=== PATIENT | female | born 1995 | race American Indian/Alaskan Native ===

== ENCOUNTER 2016-10-29 22:32 | Emergency (ER) | payer SELFPAY ==
[2016-10-29 23:06] VITALS: BP 140/79
[2016-10-29 23:44] LABS: Basophils % (Auto) 0.4 % (0.0-1.8); Eosinophils % (Auto) 2.9 % (0.0-4.3); Hematocrit 39.2 % (30.3-42.9); Hemoglobin 12.7 gm/dl (10.1-14.3); Mean Corpuscular HGB Conc 32 % (30-34); Mean Corpuscular Hemoglobin 29 pg (28-32); Mean Corpuscular Volume 88 fl (79-97); Platelet Count 355 K/mm3 (140-440); Red Blood Count 4.43 M/mm3 (3.65-5.03); Red Cell Distribution Width 14.9 % (13.2-15.2); White Blood Count 9.2 K/mm3 (4.5-11.0)
[2016-10-29 23:52] LABS: Blood Urea Nitrogen 8 mg/dL (7-17); Calcium 9.4 mg/dL (8.4-10.2); Carbon Dioxide 20 mmol/L (22-30); Chloride 100.6 mmol/L (98-107); Glucose 77 mg/dL (65-100); Sodium 137 mmol/L (137-145)
[2016-10-30 00:15] LABS: Anion Gap 21 mmol/L; Potassium 4.2 mmol/L (3.6-5.0)
[2016-10-30 02:32] LABS: Urine Drugs of Abuse Note Disclamer
[2016-10-30 03:13] LABS: Bacteria,Urine 1+ /HPF (Negative); Bilirubin,Urine NEG (Negative); Blood,Urine NEG (Negative); Ketones,Urine 80 mg/dL (Negative); Leukocyte Esterase,Urine TR (Negative); Mucus,Urine 3+ /HPF; Nitrite,Urine NEG (Negative)
== END 2016-10-30 05:41 | disposition left against medical advice (07) ==
LOC: ED 22:32
DX: Z53.21 Procedure and treatment not carried out due to patient leaving prior to being seen by health care provider (principal)
CPT/HCPCS: 36415; 80048; 80307; 81001; 85025; G0480; 80320

== ENCOUNTER 2017-04-19 17:56 | Inpatient (IN) | payer MEDICAID ==
--- NOTE | 2017-04-19 18:29 | History and Physical Report ---
History of Present Illness Date of examination: 04/19/17 Date of admission: 04/19/17 17:56 Chief complaint: Breech Presentation with Oligo Late presentation to care Poor dating History of present illness: 22-year-old at unsure gestational age due to late presentation to care, patient had only 2 visits at the clinic. She gives an oral history of OLI 04/29 which would make her 38+4 wks. Spoke to office CNM, Janel Allen, patient was apparently seen by [facility] today and Dr. Dennis recommended delivery. Past History Past Medical History: no pertinent history Past Surgical History: D&C CRESTER History: chlamydia. denies: hepatitis B, hepatitis C, HIV, syphilis, trichomonas Social history: single. denies: smoking - Obstetrical History Expected Date of Delivery: 04/29/17 (per [facility] report) Actual Gestation: 38 Week(s) 4 Day(s) : 3 Para: 1 Medications and Allergies Allergies Allergy/AdvReac Type Severity Reaction Status Date / Time Z-ZEYNEP AdvReac RASH, Uncoded 06/10/14 12:09 STOMACH UPSET Home Medications Medication Instructions Recorded Confirmed Last Taken Type Methylergonovine [Methergine] 0.2 mg PO Q8HR #6 tablet 06/11/14 Unknown Rx metroNIDAZOLE [Flagyl] 500 mg PO Q12HR #14 tablet 06/11/14 Unknown Rx Cephalexin [Keflex] 500 mg PO TID #30 capsule 07/28/14 Unknown Rx Ibuprofen [Motrin 800 MG tab] 800 mg PO TID PRN #30 tablet 08/15/15 Unknown Rx Sulfamethoxazole/Trimethoprim 1 each PO BID #20 tablet 08/15/15 Unknown Rx [Bactrim DS TAB] Review of Systems Constitutional: no fever, no chills, no fatigue Cardiovascular: no chest pain, no orthopnea, no palpitations, no syncope, no lightheadedness, no shortness of breath, no dyspnea on exertion, no high blood pressure Respiratory: no cough, no cough with sputum, no shortness of breath, no dyspnea on exertion Gastrointestinal: no abdominal pain, no nausea, no vomiting Genitourinary: no vaginal bleeding, no vaginal discharge, no leakage of fluid - Physical Exam Cardiovascular: Regular rate, Normal S1, Normal S2 Lungs: Positive: Clear to auscultation, Normal air movement Abdomen: Positive: normal appearance, soft. Negative: distention, tenderness, guarding, rigidity Uterus: Positive: enlarged (Difficult to assess due to body habitus) Extremities: Positive: normal Results All other labs normal. Assessment and Plan A: 22-year-old at 38+4 with oligohydramnios and breech presentation issues -Limited/No care -Morbidly Obese -Breech presentation -Chlamydia pos (no show for Rxt) P: -Routine labs -Patient has been consented -Proceed to the OR once available - Patient Problems (1) 38 weeks gestation of Current Visit: Yes Status: Acute (2) Limited care Current Visit: Yes Status: Acute (3) with uncertain dates, antepartum Current Visit: Yes Status: Acute (4) Morbid obesity Current Visit: Yes Status: Acute (5) Oligohydramnios Current Visit: Yes Status: Acute
[2017-04-19] MEDS ORDERED: PEPCID IV ONE (18:42)
[2017-04-19] MEDS ORDERED: EMLA TP PRN (18:42)
[2017-04-19] MEDS ORDERED: BICITRA PO ONE (18:42)
[2017-04-19] MEDS ORDERED: REGLAN IV ONE (18:42)
[2017-04-19] MEDS ORDERED: LACTATED RINGERS 1,000 ML IV SCH (19:00)
[2017-04-19] MEDS ORDERED: ANCEF/STERILE WATER 2 GM/20 ML 2 GM/20 ML SYRINGE IV NR (19:00)
[2017-04-19] MEDS ORDERED: PITOCin/NS 20 UNIT/1000ML DRIP 20 UNITS/1,000 ML BAG IV SCH ×2 (19:00→22:00)
--- NOTE | 2017-04-19 19:27 | Anesthesia Consultation ---
Anesthesia Consult and Med Hx Date of service: 04/19/17 - Airway Anesthetic Teeth Evaluation: Good ROM Head & Neck: Adequate Mental/Hyoid Distance: Adequate Mallampati Class: Class II Intubation Access Assessment: Probably Good - Pulmonary Exam CTA: Yes - Cardiac Exam Cardiac Exam: RRR - Pre-Operative Health Status ASA Pre-Surgery Classification: ASA2 Proposed Anesthetic Plan: Epidural, Spinal - Pulmonary Hx Asthma: No - Cardiovascular System Hx Hypertension: No - Endocrine Hx Non-Insulin Dependent Diabetes: No - Other Systems Hx Obesity: Yes
--- NOTE | 2017-04-19 19:27 | Anesthesia Day of Surgery ---
Anesthesia Day of Surgery - Day of Surgery Patient Examined: Yes Patient H&P Reviewed: Yes Patient is NPO: Yes
[2017-04-19] MEDS ORDERED: ZOFRAN IV PRN (19:28)
[2017-04-19] MEDS ORDERED: NARCAN 0.4 MG/1 ML IV PRN ×2 (19:28→21:11)
[2017-04-19] MEDS ORDERED: MORPHINE IV PRN ×2 (19:28)
[2017-04-19] MEDS ORDERED: BENADRYL IV PRN (19:28)
[2017-04-19 19:29] LABS: Basophils % (Auto) 0.2 % (0.0-1.8); Eosinophils # (Auto) 0.3 K/mm3 (0.0-0.4); Eosinophils % (Auto) 3.1 % (0.0-4.3); Hematocrit 32.6 % (30.3-42.9); Lymphocytes # (Auto) 1.6 K/mm3 (1.2-5.4); Lymphocytes % (Auto) 18.9 % (13.4-35.0); Mean Corpuscular HGB Conc 34 % (30-34); Mean Corpuscular Hemoglobin 28 pg (28-32); Mean Corpuscular Volume 83 fl (79-97); Monocytes # (Auto) 0.7 K/mm3 (0.0-0.8); Monocytes % (Auto) 7.7 % (0.0-7.3); Platelet Count 397 K/mm3 (140-440); Red Blood Count 3.94 M/mm3 (3.65-5.03); Red Cell Distribution Width 14.3 % (13.2-15.2)
[2017-04-19] MEDS ORDERED: Fluarix Quad 2017-2018(36 MOS+ IM ONE (19:41)
[2017-04-19] MEDS ORDERED: MORPHINE ONE (19:51)
[2017-04-19] MEDS ORDERED: ANCEF/NS 1 GM/50 ML 1 GM/50 ML BAG IV NR (20:00)
[2017-04-19] MEDS ORDERED: ANCEF/STERILE WATER 2 GM/20 ML IV ONE (20:00)
[2017-04-19] MEDS ORDERED: SODIUM CHLORIDE FLUSH SYRINGE 10 ML IV NR ×2 (20:00→22:00)
[2017-04-19] MEDS ORDERED: WATER FOR IRRIG STERILE IR ONE (20:00)
[2017-04-19] MEDS ORDERED: fentaNYL-BUPIV 2 MCG/ML-0.125% 200 MCG/100 ML BAG EPIDURAL SCH (20:00)
[2017-04-19] MEDS ORDERED: NACL 0.9% IR ONE (20:00)
[2017-04-19] MEDS ORDERED: ePHEDrine SULFATE ONE (20:10)
[2017-04-19] MEDS ORDERED: NEO SYNEPHRINE/NS Syringe(OR USE) IV ONE (20:12)
[2017-04-19] MEDS ORDERED: ANCEF ONE (20:23)
[2017-04-19] MEDS ORDERED: ZOFRAN ONE (20:27)
[2017-04-19] MEDS ORDERED: BENADRYL ONE (20:43)
[2017-04-19] MEDS ORDERED: VERSED ONE (20:45)
--- NOTE | 2017-04-19 21:10 | Operative Report ---
Operative Report Operative Report: DATE: 04/19/2017 PREOPERATIVE DIAGNOSIS: 22-year-old at 38+4 weeks, morbid obesity, oligohydramnios, breech presentation, Limited to no care POSTOP DIAGNOSIS: As above NAME OF PROCEDURE: Primary low transverse section SURGEON: BÁRBARA AIKEN MD AUDIT SENIOR ASSOCIATE: [] ANESTHESIA: Combined spinal epidural EBL: 700 mL PATHOLOGY SPECIMEN: None URINE OUTPUT: 1 58 mL FINDINGS: Female infant in marcelo breech presentation, time of 20:28, Apgars 8 and 9, infant weight 6 lbs. 6 oz. or 2901 grams, normal uterus tubes and ovaries bilaterally DESCRIPTION OF PROCEDURE: After informed consent, patient was taken to the operating room where she was prepped and draped in a sterile fashion. Pfannestial incision was performed 2 cm above the pubic symphysis. This was then carried down to the underlying rectus fascia which was scored in the midline. The fascial incision was extended laterally with the use of Aguilar scissors, anterior leaf was then grasped with Kirby's elevated dissected sharply and bluntly off the underlying rectus. In a similar fashion the inferior leaf was grasped elevated dissected sharply and bluntly off the underlying rectus. The rectus was in the midline and the peritoneal cavity was entered without difficulty. After good visualization of the bladder the peritoneal layer was extended up and down; bladder blade was placed in the patient's pelvic cavity, bladder flap was created without difficulty. A hysterotomy incision was then performed with clear amniotic fluid noted. in marcelo breech presentation was delivered without difficulty in the usual manner; cord was clamped cut and infant was handed over to waiting NICU staff. The placenta was then delivered intact, the uterus was then exteriorized cleared of all clots and debris. Her hysterotomy incision was then closed in a running locked fashion with 0 Vicryl on a CTX; using the same suture were able to imbricate the initial layer. The uterus was then returned to the patient's pelvic cavity; the peritoneal edges were grasped with hemostats and Carrie's; irrigation was used to clear the gutters of all clots and debris. Tisseel hemostatic agent was applied copiously over the hysterotomy incision. The bladder flap was then closed in a running fashion with 3-0 Vicryl. The peritoneal layer was closed in a running fashion with 3-0 Vicryl; the rectus was reapproximated with a single [id number] stitch. The fascia was then closed in a running fashion with 0 Vicryl; the subcutaneous layer was reapproximated with a single [id number] stitch. The skin was then closed in a subcuticular manner with 4-0 Monocryl. She tolerated the procedure well lap and instrument counts were correct 2, she did receive 3 grams of Ancef prior to the procedure. She is transferred to PACU in stable condition.
[2017-04-19] MEDS ORDERED: LANSINOH TP PRN (21:11)
[2017-04-19] MEDS ORDERED: MOTRIN PO PRN (21:11)
[2017-04-19] MEDS ORDERED: ANUCORT-HC PR PRN (21:11)
[2017-04-19] MEDS ORDERED: PHENERGAN PR PRN (21:11)
[2017-04-19] MEDS ORDERED: MILK OF MAGNESIA PO PRN (21:11)
[2017-04-19] MEDS ORDERED: MYLICON PO PRN (21:11)
[2017-04-19] MEDS ORDERED: TUCKS PAD TP PRN (21:11)
[2017-04-19] MEDS ORDERED: SENOKOT PO PRN (21:11)
--- NOTE | 2017-04-19 21:38 | Post Anesthesia Evaluation ---
- Post Anesthesia Evaluation Patient Participated: Yes Airway Patent: Yes Stable Respiratory Function: Yes Nausea/Vomiting: No Temp > 96.8F: Yes Pain Manageable: Yes Adequeate Hydration: Yes Anesthesia Complications: No Block Receding Appropriately: Yes Patient on Ventilator: No
[2017-04-19] MEDS ORDERED: D5LR 1,000 ML IV SCH (22:00)
[2017-04-20] MEDS: TORADOL IV PRN ×2 (03:35→13:02)
[2017-04-20 09:46] LABS: Hematocrit 29.5 % (30.3-42.9); Hemoglobin 9.8 gm/dl (10.1-14.3)
[2017-04-20] MEDS: FEOSOL PO SCH (09:49)
[2017-04-20] MEDS: PRENATAL VITAMIN PO SCH (09:49)
--- NOTE | 2017-04-20 11:22 | Progress Note ---
Assessment and Plan POD# 1 s/p Primary LTCS -Doing well issues -Limited/No care -Morbidly Obese -Breech presentation -Chlamydia pos (no show for Rxt) - status post 3 g Ancef prior to surgery P: -Continue routine postop care -Anticipate discharge in 24-48 hours - Patient Problems (1) 38 weeks gestation of Current Visit: Yes Status: Acute (2) Limited care Current Visit: Yes Status: Acute (3) with uncertain dates, antepartum Current Visit: Yes Status: Acute (4) Morbid obesity Current Visit: Yes Status: Acute (5) Oligohydramnios Current Visit: Yes Status: Acute Subjective - Subjective Date of service: 04/20/17 Principal diagnosis: POD # 1 Interval history: Patient seen and examined, stable doing well. No chest pain or shortness of breath no fever or chills, adequate bowel bladder function, de jesus still in place , not yet ambulated pain well-controlled Patient reports: appetite normal, voiding normally, pain well controlled, flatus , no dizzy ambulation, no nauseated [place]: doing well Objective - Vital Signs Latest vital signs: Vital Signs Temp Pulse Resp BP BP Pulse Ox 04/20/17 09:26 98.8 F 87 20 104/46 95 04/20/17 04:30 99.3 F 80 16 98/52 04/20/17 00:40 99.1 F 74 18 100/48 98 04/19/17 22:30 66 12 110/55 93 04/19/17 22:20 97.7 F 84 11 L 97/49 99 04/19/17 22:10 77 13 100/47 97 04/19/17 22:00 65 13 105/49 99 04/19/17 21:50 72 13 106/42 99 04/19/17 21:40 77 10 L 123/69 99 04/19/17 21:32 87 15 97 04/19/17 21:30 97.6 F 04/19/17 19:01 98.9 F 89 18 134/68 98 Intake and Output 04/19/17 04/20/17 04/20/17 23:59 07:59 15:59 Intake Total 2250 Output Total 258 500 Balance 1991 - Intake: IV 2250 Output: Urine 258 500 Indwelling Catheter 500 Other: Total, Output Amount 500 Weight 146.964 kg - Exam Abdomen: Present: normal appearance, soft. Absent: distention, tenderness, guarding, rigidity Extremities: Present: normal Incision: Present: dressed - Labs Labs: Abnormal lab results 04/19/17 04/20/17 Range/Units 19:10 09:13 Hgb 9.8 L (10.1-14.3) gm/dl Hct 29.5 L (30.3-42.9) % [place] % (Auto) 7.7 H (0.0-7.3) % Seg Neutrophils % 70.1 H (40.0-70.0) %
[2017-04-20] MEDS: PERCOCET 5/325 PO PRN (21:02)
[2017-04-20] MEDS ORDERED: M-M-R II VACCINE SUB-Q ONE (21:12)
[2017-04-20] MEDS ORDERED: BOOSTRIX IM ONE (21:12)
--- NOTE | 2017-04-21 08:37 | Progress Note ---
Assessment and Plan POD# 2 s/p Primary LTCS -Doing well and desires discharge home P: -Will discharged home -Follow up in clinic in 1-2 weeks for incision check - Patient Problems (1) Status post primary low transverse section Current Visit: Yes Status: Acute (2) 38 weeks gestation of Current Visit: Yes Status: Acute (3) Limited care Current Visit: Yes Status: Acute (4) with uncertain dates, antepartum Current Visit: Yes Status: Acute (5) Morbid obesity Current Visit: Yes Status: Acute (6) Oligohydramnios Current Visit: Yes Status: Acute Subjective - Subjective Date of service: 04/21/17 Principal diagnosis: POD # 2 Interval history: Patient seen and examined, stable doing well. No chest pain or shortness of breath no fever or chills, adequate bowel bladder function, ambulating without difficulty and pain well controlled. Patient reports: appetite normal, voiding normally, pain well controlled, flatus , ambulating normally, no dizzy ambulation, no nauseated [place]: doing well (Infant scheduled for adoption) Objective - Vital Signs Latest vital signs: Vital Signs Temp Pulse Resp BP BP Pulse Ox 04/21/17 01:00 98.6 F 66 16 121/77 04/20/17 09:26 98.8 F 87 20 104/46 95 Intake and Output 04/20/17 04/21/17 04/21/17 23:59 07:59 15:59 Intake Total 300 Output Total 700 Balance -700 300 Intake: Intake, Free Water 300 Output: Urine 700 Indwelling Catheter 350 Void 350 Other: Total, Output Amount 700 # Bowel Movements 1 - Exam Abdomen: Present: normal appearance, soft, normal bowel sounds. Absent: distention, tenderness, guarding, rigidity Uterus: Present: firm, fundal height below umbilicus Extremities: Present: normal Incision: Present: dry, intact - Labs Labs: Abnormal lab results 04/20/17 Range/Units 09:13 Hgb 9.8 L (10.1-14.3) gm/dl Hct 29.5 L (30.3-42.9) %
--- NOTE | 2017-04-21 08:38 | Discharge Summary ---
Providers - Providers Date of Admission: 04/19/17 17:56 Date of discharge: 04/21/17 Attending physician: BÁRBARA AIKEN 04/20/17 14:59 Consult to Case Management [CONS] Routine Services Needed at Discharge: Document Reviewer Notified:: no Was contact made?: No Additional Physician Instructions: baby for adoption Primary care physician: BÁRBAAR AIKEN Hospitalization Reason for admission: section (Breech presentation with Oligo scheduled for primary ), IUP at term Delivery: Procedure: primary low transverse Incision: dry, intact Other procedures: none complications: none Discharge diagnosis: IUP at term delivered, other (Primary for breech presentation and oligohydramnios) [place] baby: female Hospital course: 22-year-old at unsure gestational age due to late presentation to [facility], patient had only 2 visits at the clinic. She gives an oral history of OLI 04/29/2016 which would make her 38+4 wks. Spoke to office CNM, Janel Allen, patient was apparently seen by [facility] today and Dr. Dennis recommended delivery. Status post primary for breech presentation, is to be adopted. Hospital course was unremarkable Condition at discharge: Good Disposition: DC-01 TO HOME OR SELFCARE - Discharge Diagnoses (1) Status post primary low transverse section Status: Acute (2) 38 weeks gestation of Status: Acute (3) Limited care Status: Acute (4) with uncertain dates, antepartum Status: Acute (5) Morbid obesity Status: Acute (6) Oligohydramnios Status: Acute Plan - Discharge Medications Prescriptions: Ibuprofen [Motrin 600 MG tab] 600 mg PO Q8H PRN #30 tablet PRN Reason: Pain Multivitamin with Iron [Multivitamins with Iron] 1 each PO DAILY #30 tablet oxyCODONE /ACETAMINOPHEN [Percocet 5/325] 1 tab PO Q6HR PRN #30 tablet PRN Reason: Pain - Provider Discharge Summary Activity: no sex for 6 weeks, no heavy lifting 4 weeks, no strenuous exercise Diet: routine Additional instructions: [] Smoking cessation referral if applicable(refer to patient education folder for contact #) [] Refer to [facility] Booklet Call your doctor immediately for: * Fever > 100.5 * Heavy vaginal bleeding ( >1 pad per hour) * Severe persistent headache * Shortness of breath * Reddened, hot, painful area to leg or breast * Drainage or odor from incision. * Keep incision clean and dry at all times and follow doctor's instructions regarding bathing/showering - Follow up plan Follow up: BÁRBARA AIKEN MD [Primary Care Provider] - 14 Days
[2017-04-21] MEDS: FEOSOL PO SCH (10:10)
[2017-04-21] MEDS: PERCOCET 5/325 PO PRN (10:10)
[2017-04-21] MEDS: PRENATAL VITAMIN PO SCH (10:10)
[2017-04-21 15:24] VITALS: BP 119/76
== END 2017-04-21 13:30 | disposition home or self-care (01) | DRG 765 ==
LOC: APU 17:56 → OB 23:44
PROVIDERS: ADMIT Obstetrics & Gynecology Gynecology; ATTEND Obstetrics & Gynecology Gynecology
PROC: 10D00Z1 Extraction of Products of Conception, Low, Open Approach (ICD-10-PCS; principal; 2017-04-19)
DX: O32.1XX0 Maternal care for breech presentation, not applicable or unspecified (principal); O41.03X0 Oligohydramnios, third trimester, not applicable or unspecified; Z68.43 Body mass index [BMI] 50.0-59.9, adult; O98.82 Other maternal infectious and parasitic diseases complicating childbirth; Z37.0 Single live birth; Z3A.38 38 weeks gestation of pregnancy; O99.214 Obesity complicating childbirth; E66.01 Morbid (severe) obesity due to excess calories
CPT/HCPCS: 36415; 85014; 85018; 85025; 86706; 86762; 86850; 86900; 86901; 87806; 90686; C9250; J0690; J1200; J1885; J2250; J2270; J2370; J2405; J2590; J2765; J7120; J7121

== ENCOUNTER 2018-01-18 08:51 | Emergency (ER) | payer MEDICAID ==
[2018-01-18 09:14] VITALS: BP 147/96
== END 2018-01-18 09:40 | disposition left against medical advice (07) ==
LOC: ED 08:51
DX: F41.9 Anxiety disorder, unspecified (principal); Z53.21 Procedure and treatment not carried out due to patient leaving prior to being seen by health care provider

== ENCOUNTER 2018-01-18 13:11 | Emergency (ER) | payer MEDICAID ==
--- NOTE | 2018-01-18 13:28 | Emergency Department Report ---
HPI - HPI HPI: Room 9 The patient is 22-year-old female presenting with a chief complaint of suicidal ideation. The patient states she has a history depression but has been off her antidepressants for several years. The patient states recently (will not give a time frame) she has had suicidal ideation. The patient states she is having thoughts of running into traffic. The patient came to this ED earlier this morning but eloped prior to evaluation. The patient was found standing on the wall outside of the emergency department that is adjacent to a stairway. The patient was threatening to jump off of the wall. Patient was brought into the hospital by security. The patient is tearful. Patient denies any attempts at harming herself. Location: Mental state Duration: "A while" Quality: Suicidal Severity: Severe Modifying factors: [see above] Context: [see above] Mode of transportation: [not driving] ED Past Medical Hx - Past Medical History Hx Psychiatric Treatment: Yes (depression) - Surgical History Additional Surgical History: D&C - Family History Family history: no significant - Social History Smoking Status: Current Every Day Smoker Substance Use Type: Alcohol, Cocaine, Marijuana, Other (ecstasy) - Medications Home Medications: Home Medications Medication Instructions Recorded Confirmed Last Taken Type Ibuprofen [Motrin 600 MG tab] 600 mg PO Q8H PRN #30 tablet 04/19/17 Unknown Rx Multivitamin with Iron 1 each PO DAILY #30 tablet 04/19/17 Unknown Rx [Multivitamins with Iron] oxyCODONE /ACETAMINOPHEN [Percocet 1 tab PO Q6HR PRN #30 tablet 04/19/17 Unknown Rx 5/325] ED Review of Systems ROS: Stated complaint: AMS Other details as noted in HPI Constitutional: no symptoms reported Eyes: denies: eye pain ENT: denies: throat pain Respiratory: no symptoms reported Cardiovascular: denies: chest pain Endocrine: no symptoms reported Gastrointestinal: denies: abdominal pain Genitourinary: denies: dysuria Musculoskeletal: denies: back pain Neurological: denies: headache Psychiatric: suicidal thoughts Physical Exam - Physical Exam Physical Exam: GENERAL: The patient is well-developed well-nourished female tearful sitting on stretcher. [] HEENT: Normocephalic. Atraumatic. Extraocular motions are intact. Patient has moist mucous membranes. NECK: Supple. No meningitic signs are noted. Trachea midline CHEST/LUNGS: Clear to auscultation. There is no respiratory distress noted. HEART/CARDIOVASCULAR: Regular. There is no tachycardia. There is no gallop rub or murmur. ABDOMEN: Abdomen is soft, nontender. Patient has normal bowel sounds. There is no abdominal distention. SKIN: There is no rash. There is no edema. There is no diaphoresis. NEURO: The patient is awake, alert, and oriented. The patient is cooperative. The patient has normal speech and gait. MUSCULOSKELETAL: There is no evidence of acute injury. ED Medical Decision Making - Lab Data Result diagrams: 01/18/18 14:32 01/18/18 14:32 Laboratory Tests 01/18/18 01/18/18 01/18/18 14:32 14:32 14:32 WBC 5.0 RBC 4.01 Hgb 11.4 Hct 34.2 MCV 85 MCH 28 MCHC 33 RDW 14.8 Plt Count 368 Lymph % (Auto) 33.6 [place] % (Auto) 8.8 H Eos % (Auto) 0.7 Baso % (Auto) 0.8 Lymph # 1.7 [place] # 0.4 Eos # 0.0 Baso # 0.0 Seg Neutrophils % 56.1 Seg Neutrophils # 2.8 Sodium 140 Potassium 3.2 L Chloride 102.4 Carbon Dioxide 24 Anion Gap 17 BUN 7 Creatinine 0.9 Estimated GFR > 60 BUN/Creatinine Ratio 8 Glucose 82 Calcium 9.2 HCG, Qual Salicylates < 0.3 L Acetaminophen Plasma/Serum Alcohol 01/18/18 01/18/18 01/18/18 14:32 14:32 14:32 WBC RBC Hgb Hct MCV MCH MCHC RDW Plt Count Lymph % (Auto) [place] % (Auto) Eos % (Auto) Baso % (Auto) Lymph # [place] # Eos # Baso # Seg Neutrophils % Seg Neutrophils # Sodium Potassium Chloride Carbon Dioxide Anion Gap BUN Creatinine Estimated GFR BUN/Creatinine Ratio Glucose Calcium HCG, Qual Negative Salicylates Acetaminophen < 5.0 L Plasma/Serum Alcohol < 0.01 - Differential Diagnosis suicidal ideation, depression Critical care attestation.: If time is entered above; I have spent that time in minutes in the direct care of this critically ill patient, excluding procedure time. ED Disposition Clinical Impression: Depression, Suicidal ideation Disposition: DC/TX-65 PSY HOSP/PSY UNIT Is pt being admited?: No Does the pt Need Aspirin: No Condition: Serious Time of Disposition: 16:27 (awaiting acceptance)
[2018-01-18 14:57] LABS: Basophils % (Auto) 0.8 % (0.0-1.8); Eosinophils % (Auto) 0.7 % (0.0-4.3); Hematocrit 34.2 % (30.3-42.9); Hemoglobin 11.4 gm/dl (10.1-14.3); Lymphocytes # (Auto) 1.7 K/mm3 (1.2-5.4); Lymphocytes % (Auto) 33.6 % (13.4-35.0); Mean Corpuscular HGB Conc 33 % (30-34); Mean Corpuscular Hemoglobin 28 pg (28-32); Mean Corpuscular Volume 85 fl (79-97); Monocytes # (Auto) 0.4 K/mm3 (0.0-0.8); Monocytes % (Auto) 8.8 % (0.0-7.3); Platelet Count 368 K/mm3 (140-440); Red Blood Count 4.01 M/mm3 (3.65-5.03); Red Cell Distribution Width 14.8 % (13.2-15.2)
[2018-01-18 15:17] LABS: BUN/Creatinine Ratio 8; Blood Urea Nitrogen 7 mg/dL (7-17); Calcium 9.2 mg/dL (8.4-10.2); Hemolysis Index 1
[2018-01-18 22:53] LABS: Bacteria,Urine 2+ /HPF (Negative); Bilirubin,Urine NEG (Negative); Blood,Urine NEG (Negative); Color,Urine Yellow (Yellow); Mucus,Urine FEW /HPF; Protein,Urine <15 mg/dL mg/dL (Negative)
[2018-01-18 22:59] LABS: Benzodiazepines Screen,Urine PRESUMPTIVE NEGATIVE; Methadone Screen,Urine PRESUMPTIVE NEGATIVE; Opiate Screen,Urine PRESUMPTIVE NEGATIVE
[2018-01-18 23:16] LABS: Amphetamine Screen,Urine PRESUMPTIVE POSITIVE; Cannabinoid Screen,Urine PRESUMPTIVE POSITIVE; Cocaine Screen,Urine PRESUMPTIVE POSITIVE
--- NOTE | 2018-01-19 20:11 | Consultation ---
History of Present Illness - Reason for Consult Consult date: 01/19/18 Reason for consult: Initial Psychiatric Evaluation - Chief Complaint Chief complaint: " Security stopped me from jumping off the ledge" - History of Present Psychiatric Illness Patient is 22-year-old female that presents to the emergency room with a chief complaint of suicidal ideation. Patient has a PPHx of MDD. The patient states recently (will not give a time frame) she has had suicidal ideation. The patient states she is having thoughts of running into traffic. The patient came to this ED earlier this morning but eloped prior to evaluation. The patient was found standing on the wall outside of the emergency department that is adjacent to a stairway. The patient was threatening to jump off of the wall. Patient was brought into the hospital by security. Today patient presents cooperative but anxious during the assessment. She states, " I came here yesterday because I did some drugs last night. I was feeling anxious and unsafe. I did not trust myself. I called 911." Current she endorses paranoid delusions and auditory hallucinations " the voices are me going back and forth." She denies VH's and HI's. She verbalizes that her depression worsen after her brother was killed by his approximately 2 years ago. She continues to endorse suicidal ideations with no specific plan. Current Psychiatric Medications: Patient denies. Past Psychiatric History: MDD( Age 13); 2 previous inpatient psychiatric hospitalizations ( [facility] x 2 ); No outpatient psychiatrist; Multiple suicide attempts ( overdosing, drinking chemicals, and inhaling carbon dioxide) . Last attempt a few weeks ago- refuses to give specific date. Past Psychiatric Medication Trials: Depakote- ( during childhood) History of Trauma/Abuse: Patient denies sexual, physical, and mental abuse. Drug/Alcohol Abuse History: Marijuana- amount/frequency- daily, multiple times throughout the day, method- "smoke," last use- 01/18/18, last use- age 12; Cocaine/Xanax- amount/frequency- varies, method- cocaine "snort"/ Xanax- "pills "; last use- 01/18/18, first use- age 20; UDS positive for amphetamines, marijuana, and cocaine. Social History: High School Diploma- highest level of education; 2 children- 8 months old (placed in the adoption system); good support system- " family"; Employed- [employer]; Lives with mother in [place], [place]. Family History: Cousins " alcoholics" Medications and Allergies Allergies Allergy/AdvReac Type Severity Reaction Status Date / Time Z-ZENYEP AdvReac RASH, Uncoded 06/10/14 12:09 STOMACH UPSET Home Medications Medication Instructions Recorded Confirmed Last Taken Type Ibuprofen [Motrin 600 MG tab] 600 mg PO Q8H PRN #30 tablet 04/19/17 Unknown Rx Multivitamin with Iron 1 each PO DAILY #30 tablet 04/19/17 Unknown Rx [Multivitamins with Iron] oxyCODONE /ACETAMINOPHEN [Percocet 1 tab PO Q6HR PRN #30 tablet 04/19/17 Unknown Rx 5/325] Mental Status Exam - Vital signs Last Vital Signs Temp 98.1 F 01/19/18 10:00 Pulse 53 L 01/19/18 10:00 Resp 16 01/19/18 10:00 BP 121/59 01/19/18 10:00 Pulse Ox 98 01/19/18 10:00 - Exam Narrative exam: Mental Status Exam General Appearance: Causally Dressed-hospital gown Eye Contact: Intermittent Orientation: Alert and oriented x 4 (person, place, time, and situation) Attitude/Behavior: Cooperative Sensorium: Distracted Psychomotor & Musculoskeletal Activity: Laying in bed Mood: "down"; depressed, dysphoric, and anxious Affect: Constricted Speech/Language: Slow Thought Processes: Circumstantial Thought Content: Impoverished Perception: + Auditory hallucinations " me going back and forth with myself" Concentration/Attention: Impaired Suicidal Ideations/Plan: + suicidal ideation without a specific plan Homicidal Ideations/Plan: Patient denies. Judgment: Poor Insight: Poor Results Result Diagrams: 01/18/18 14:32 01/18/18 14:32 Abnormal lab results 01/18/18 Range/Units 22:24 Urine WBC (Auto) 9.0 H (0.0-6.0) /HPF All other labs normal. Assessment and Plan Assessment and plan: Impression: PPHx MDD. Mood Disorder Unspecified. Today the patient is cooperative but anxious during the assessment. Patient endorses auditory hallucinations. paranoid delusions, and suicidal ideations without a specific plan. She denies HI's and VH's UDS positive for amphetamines, marijuana, and cocaine. DDx: r/o drug induced psychosis r/o bipolar disorder with psychotic features r/ o schizoaffective disorder Recommendations/Plan: 1. Continue 1013 with placement to inpatient psychiatric services. 2. Start Abilify 5 mg po QHS mood/psychosis. Discussed possible metabolic side effects of Abilify with the patient. 3. Will continue to monitor mood, psychosis, sleep, appetite, compliance, and side effects.
[2018-01-19] MEDS ORDERED: ATIVAN PO ONE (20:42)
[2018-01-19] MEDS ORDERED: ATIVAN ONE (20:47)
[2018-01-19 20:53] VITALS: BP 127/68
[2018-01-19] MEDS ORDERED: ABILIFY PO SCH (22:00)
[2018-01-19] MEDS ORDERED: HABITROL TD ONE (23:06)
[2018-01-20] MEDS ORDERED: HALDOL IM PRN (02:03)
[2018-01-20] MEDS ORDERED: BENADRYL IM PRN (02:03)
== END 2018-01-20 06:34 ==
LOC: ED 13:11
DX: F32.9 Major depressive disorder, single episode, unspecified (principal); F17.200 Nicotine dependence, unspecified, uncomplicated
CPT/HCPCS: 36415; 80048; 80307; 81001; 84703; 85025; 96372; 99285; G0480; J1200; J1630; 80320

== ENCOUNTER 2018-07-18 15:02 | Emergency (ER) | payer MEDICAID, OTHER ==
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
[2018-07-18 18:21] VITALS: BP 143/70
== END 2018-07-18 18:21 | disposition home or self-care (01) ==
LOC: ED 15:02
DX: S39.012A Strain of muscle, fascia and tendon of lower back, initial encounter (principal); V49.49XA Driver injured in collision with other motor vehicles in traffic accident, initial encounter; Y93.89 Activity, other specified; Y92.488 Other paved roadways as the place of occurrence of the external cause; Y99.8 Other external cause status
CPT/HCPCS: 72100

== ENCOUNTER 2021-07-18 16:08 | Emergency (ER) | payer MEDICAID, OTHER ==
[2021-07-18 18:06] VITALS: BP 144/81
[2021-07-18] MEDS ORDERED: DEXAMETHASONE 4 MG TAB PO ONE (20:10)
[2021-07-18 20:36] LABS: Bacteria,Urine 1+ /HPF (Negative); Bilirubin,Urine NEG (Negative); Blood,Urine NEG (Negative); Color,Urine Yellow (Yellow); Mucus,Urine 1+ /HPF; Protein,Urine <15 mg/dL mg/dL (Negative)
[2021-07-18 20:43] LABS: HCG Qualitative,Urine Negative (Negative)
[2021-07-18 21:03] LABS: Hematocrit 36.3 % (30.3-42.9); Hemoglobin 11.8 gm/dl (10.1-14.3); Mean Corpuscular HGB Conc 33 % (30-34); Mean Corpuscular Volume 90 fl (79-97); Platelet Count 406 K/mm3 (140-440); Red Blood Count 4.02 M/mm3 (3.65-5.03); Red Cell Distribution Width 14.5 % (13.2-15.2)
--- NOTE | 2021-07-18 21:05 | XRay Report ---
CHEST 2 VIEWS INDICATION / CLINICAL INFORMATION: chest pain. COMPARISON: None available. FINDINGS: SUPPORT DEVICES: None. HEART / MEDIASTINUM: No significant abnormality. LUNGS / PLEURA: No significant pulmonary or pleural abnormality. No pneumothorax. ADDITIONAL FINDINGS: No significant additional findings. IMPRESSION: 1. No acute findings. Signer Name: Jeffy Giraldo MD Signed: 07/18/2021 9:01 PM Workstation Name: [id number]
[2021-07-18 21:29] LABS: Alanine Aminotransferase 13 units/L (7-56); Blood Urea Nitrogen 10 mg/dL (7-17); Calcium 9.3 mg/dL (8.4-10.2); Hemolysis Index 18
[2021-07-18 21:30] LABS: BUN/Creatinine Ratio 14
--- NOTE | 2021-07-18 22:08 | Emergency Department Report ---
ED Chest Pain HPI - General Chief Complaint: Chest Pain Stated Complaint: CHEST PAIN Time Seen by Provider: 07/18/21 19:34 Source: patient Mode of arrival: Ambulatory Limitations: No Limitations - History of Present Illness Initial Comments: 26-year-old black female with no past medical history and no known family history of CAD presents to the emergency department for evaluation of left chest pain. She states that she started having left chest pain earlier this morning with shortness of breath, nausea, and dizziness. She states that pain feels li ke a deep squeeze under her left breast and radiates her left arm at times. She states the pain is significantly worse when she takes a deep breath. She denies diaphoresis, fever. She states that she just feels achy and bad all over. MD Complaint: chest pain -: Gradual, hour(s) Onset: during rest Pain Location: left chest Pain Radiation: LUE Severity: severe Quality: tightness Consistency: intermittent Worsens With: inspiration re: nausea, dyspnea. denies: vomting, diaphoresis, sense of impending doom Other Symptoms: denies: cough, fever, syncope, rash, acid taste in mouth, leg swelling, palpitations, burping Treatments Prior to Arrival: none Aspirin use within the Past 7 Days: (0) No - Related Data Previous Rx's Medication Instructions Recorded Last Taken Type Ibuprofen [Motrin 600 MG tab] 600 mg PO Q8H PRN #30 tablet 04/19/17 Unknown Rx Multivitamin with Iron 1 each PO DAILY #30 tablet 04/19/17 Unknown Rx [Multivitamins with Iron] oxyCODONE /ACETAMINOPHEN [Percocet 1 tab PO Q6HR PRN #30 tablet 04/19/17 Unknown Rx 5/325] Ibuprofen [Ibu] 800 mg PO Q8H PRN #20 tablet 07/18/18 Unknown Rx methOCARBAMOL [Robaxin TAB] 500 mg PO Q6H PRN #14 tablet 07/18/18 Unknown Rx Naproxen [Naprosyn] 500 mg PO BID #14 tab 07/18/21 Unknown Rx cephALEXin [Keflex] 500 mg PO Q12HR #14 cap 07/18/21 Unknown Rx Allergies Allergy/AdvReac Type Severity Reaction Status Date / Time azithromycin Allergy Hives Verified 07/18/18 15:04 Heart Score - HEART Score History: Moderately suspicious EKG: Normal Age: < 45 Risk factors: 1-2 risk factors Troponin: < normal limit HEART Score: 2 - EKG Read Time Time EKG Completed: 16:20 EKG Read Time: 16:25 - Critical Actions Critical Actions: 0-3 pts:0.9-1.7%risk of adverse cardiac event.Candidate for discharge ED Review of Systems ROS: Stated complaint: CHEST PAIN Other details as noted in HPI Comment: All other systems reviewed and negative Constitutional: denies: chills, fever Respiratory: shortness of breath. denies: cough, SOB with exertion, SOB at rest, wheezing Cardiovascular: chest pain. denies: palpitations, dyspnea on exertion, orthopnea, edema, syncope, paroxysmal nocturnal dyspnea Gastrointestinal: nausea. denies: abdominal pain, vomiting, diarrhea, hematemesis, melena, hematochezia Genitourinary: denies: urgency, dysuria, frequency, hematuria, discharge Musculoskeletal: denies: back pain Neurological: denies: headache, weakness, numbness, paresthesias, confusion, a bnormal gait ED Past Medical Hx - Past Medical History Hx Hypertension: No Hx Congestive Heart Failure: No Hx Diabetes: No Hx Deep Vein Thrombosis: No Hx Renal Disease: No Hx Sickle Cell Disease: No Hx Seizures: No Hx Psychiatric Treatment: Yes (depression) Hx Asthma: No Hx COPD: No Hx HIV: No - Surgical History Hx Coronary Stent: No Hx Open Heart Surgery: No Hx Pacemaker: No Hx Internal Defibrillator: No Hx Cholecystectomy: No Hx Appendectomy: No Hx Breast Surgery: No Additional Surgical History: D&C - Social History Smoking Status: Never Smoker Substance Use Type: None - Medications Home Medications: Home Medications Medication Instructions Recorded Confirmed Last Taken Type Ibuprofen [Motrin 600 MG tab] 600 mg PO Q8H PRN #30 tablet 04/19/17 Unknown Rx Multivitamin with Iron 1 each PO DAILY #30 tablet 04/19/17 Unknown Rx [Multivitamins with Iron] oxyCODONE /ACETAMINOPHEN [Percocet 1 tab PO Q6HR PRN #30 tablet 04/19/17 Unknown Rx 5/325] Ibuprofen [Ibu] 800 mg PO Q8H PRN #20 tablet 07/18/18 Unknown Rx methOCARBAMOL [Robaxin TAB] 500 mg PO Q6H PRN #14 tablet 07/18/18 Unknown Rx Naproxen [Naprosyn] 500 mg PO BID #14 tab 07/18/21 Unknown Rx cephALEXin [Keflex] 500 mg PO Q12HR #14 cap 07/18/21 Unknown Rx ED Physical Exam - General Limitations: No Limitations General appearance: alert, in no apparent distress - Head Head exam: Present: atraumatic, normocephalic - Eye Eye exam: Present: normal appearance. Absent: conjunctival injection - Neck Neck exam: Present: normal inspection. Absent: tenderness, lymphadenopathy - Respiratory Respiratory exam: Present: normal lung sounds bilaterally. Absent: respiratory distress, wheezes, rales, rhonchi, stridor, chest wall tenderness, accessory muscle use - Cardiovascular Cardiovascular Exam: Present: regular rate - GI/Abdominal GI/Abdominal exam: Present: soft, normal bowel sounds. Absent: distended, tenderness, guarding, rebound, rigid - Extremities Exam Extremities exam: Present: normal inspection, normal capillary refill. Absent: pedal edema, joint swelling, calf tenderness - Back Exam Back exam: Present: normal inspection. Absent: CVA tenderness (R), CVA tenderness (L) - Neurological Exam Neurological exam: Present: alert, oriented X3, normal gait - Psychiatric Psychiatric exam: Present: normal affect, normal mood - Skin Skin exam: Present: warm, dry, intact, normal color ED Course Vital Signs 07/18/21 18:05 Temperature 98.4 F Pulse Rate 79 Respiratory 15 Rate Blood Pressure 144/81 O2 Sat by Pulse 97 Oximetry - Reevaluation(s) Reevaluation #1: Chest pain minimally improved after medication 07/18/21 21:49 ED Medical Decision Making - Lab Data Result diagrams: 07/18/21 20:45 07/18/21 20:45 - EKG Data Interpretation: no acute changes, normal EKG - Radiology Data Radiology results: report reviewed, image reviewed Chest x-ray: FINDINGS: SUPPORT DEVICES: None. HEART / MEDIASTINUM: No significant abnormality. LUNGS / PLEURA: No significant pulmonary or pleural abnormality. No pneumothorax. ADDITIONAL FINDINGS: No significant additional findings. IMPRESSION: 1. No acute findings. - Medical Decision Making 26-year-old black female with no past medical history and no known family history of CAD presents to the emergency department for evaluation of left chest pain. She states that she started having left chest pain earlier this morning with shortness of breath, nausea, and dizziness. She states that pain feels like a deep squeeze under her left breast and radiates her left arm at times. S he states the pain is significantly worse when she takes a deep breath. She denies diaphoresis, fever. EKG without any acute ischemic abnormalities noted, troponin within normal limits, chest x-ray within normal limits, no abnormalities noted on labs, and pain slightly improved after medications. Low suspicion for CAD. Given that patient has some generalized aches, will treat urinary tract infection with Keflex 500 mg p.o. twice daily. Patient advised to follow-up with cardiology and/or primary care provider for further evaluation and management. Critical care attestation.: If time is entered above; I have spent that time in minutes in the direct care of this critically ill patient, excluding procedure time. ED Disposition Clinical Impression: Chest pain Qualifiers: Chest pain type: unspecified Qualified Code(s): R07.9 - Chest pain, unspecified UTI (urinary tract infection) Qualifiers: Urinary tract infection type: acute cystitis Hematuria presence: without hematuria Qualified Code(s): N30.00 - Acute cystitis without hematuria Disposition: HOME / SELF CARE / HOMELESS Is pt being admited?: No Does the pt Need Aspirin: No Condition: Stable Instructions: Urinary Tract Infection, Adult, [id number], Nonspecific Chest Pain, Adult, [id number] Additional Instructions: Take medication as prescribed. Follow-up with primary care provider. Follow-up with cardiology for further evaluation and management. Prescriptions: cephALEXin [Keflex] 500 mg PO Q12HR #14 cap Naproxen [Naprosyn] 500 mg PO BID #14 tab Referrals: SAHARA JEWELL MD [Referring] - 3-5 Days DESIRAE GREEN MD [Staff Physician] - 3-5 Days
--- NOTE | 2021-07-19 14:27 | Electrocardiograph Report ---
[facility] Test Date: 2021-07-18 Test Time: 16:17:15 Pat Name: JOSEPH ALCARAZ Department: Room: Gender: F Collateral Clerk: RUSLAN : 1995 Requested By: SARAH NARVAEZ Order Number: [id number] Reading MD: Brice Jones Measurements Intervals Herod Rate: 77 P: 48 CO: 146 QRS: 20 QRSD: 78 T: 8 QT: 388 QTc: 438 Interpretive Statements Sinus rhythm No previous ECG available for comparison Electronically Signed On 07-19-2021 14:27:01 EDT by Brice Jones
== END 2021-07-18 22:17 | disposition home or self-care (01) ==
LOC: ED 16:08
DX: R07.9 Chest pain, unspecified (principal); N39.0 Urinary tract infection, site not specified; Z88.1 Allergy status to other antibiotic agents
CPT/HCPCS: 36415; 71046; 80053; 81001; 81025; 84484; 85027; 87086; 93005; 99284; J8540